=== PATIENT | male | born 1990 | race Caucasian/White ===

== ENCOUNTER 2017-10-16 13:06 | Emergency (ER) | payer BC, OTHER ==
[~2017-10-16] VITALS: Ht 180.3 cm; Wt 95.5 kg
[~2017-10-16 13:06] MED LIST: NAPR500T2 PO
[2017-10-16 13:08] VITALS: BP 140/87; PULSE 83; RESP 14; TEMP 97.9; O2SAT 100
[2017-10-16] MEDS ORDERED: SODIUM CHLOR 0.9% 1000 ML INJ 1,000 ML IV SCH (16:00)
[2017-10-16] MEDS ORDERED: ONDANSETRON HCL 4 MG/2 ML VIAL IVP ONE (16:00)
[2017-10-16] MEDS ORDERED: SODIUM CHLORIDE 0.9% FLUSH 10 ML FLUSH IV FLUSH PRN (16:00)
--- NOTE | 2017-10-16 16:02 | PD ---
HPI Chief Complaint: GI Complaint Time Seen by Provider: 15:53 Travel History International Travel<30 days: No Contact w/Intl Traveler<30days: No Traveled to known affect area: No History of Present Illness HPI The patient is a 27-year-old male who presents to the emergency department for 3-4 days of intermittent abdominal cramping, dehydration, and diarrhea. The patient states his symptoms started on Thursday with abdominal pain that was followed by syncopal episode. The patient states that the paramedics came to his place of work and noticed his blood pressure had a systolic in the 160s and his blood sugar was in the 50s. The patient was given oral glucose at that time, his blood sugar improved, and his blood pressure normalized. He declined transport to the hospital at that time. He has been drinking Pedialyte at home and drinking fluids, eating small meals, however, he still feels dehydrated. He also notes he continues to have diarrhea which she describes as loose, watery, brown, without any visible blood. He denies any recent international travel, travel to foreign countries, drinking well water, or camping out [place]. He denies any sick family members at home with similar symptoms. He does complain of some generalized body aches but denies any sore throat, cough, or chest pain. He denies any current nausea or vomiting. Symptoms are moderate. PFSH Past Medical History Narrative Medical Left wrist fracture Past Surgical History Narrative Surgical Circumcision, right clavicle surgery Social History Tobacco Use: No Allergies-Medications (Allergen,Severity, Reaction): Coded Allergies: cefaclor (Unverified Allergy, Mild, RASH, 10/16/17) Reported Meds & Prescriptions Reported Meds & Active Scripts Active No Active Prescriptions or Reported Medications Review of Systems Except as stated in HPI: all other systems reviewed are Neg General / Constitutional: Positive: Fever Cardiovascular: No: Chest Pain or Discomfort Respiratory: No: Shortness of Breath Gastrointestinal: Positive: Diarrhea, Abdominal Pain, No: Nausea, Vomiting Genitourinary: No: Dysuria Musculoskeletal: Positive: Myalgias, Weakness Physical Exam Narrative GENERAL: Awake, alert, pleasant 27-year-old male who appears his stated age and is in no acute respiratory distress. SKIN: Focused skin assessment warm/dry. HEAD: Atraumatic. Normocephalic. EYES: No scleral icterus. No injection or drainage. ENT: No nasal bleeding or discharge. Slightly dry mucous membranes. NECK: Trachea midline. No JVD. CARDIOVASCULAR: Regular rate and rhythm. No murmur appreciated. RESPIRATORY: No accessory muscle use. Clear to auscultation. Breath sounds equal bilaterally. GASTROINTESTINAL: Abdomen soft, tender to palpation left lower quadrant. No guarding or rigidity. MUSCULOSKELETAL: No obvious deformities. No clubbing. No cyanosis. No edema. NEUROLOGICAL: Awake and alert. No obvious cranial nerve deficits. Motor grossly within normal limits. Normal speech. PSYCHIATRIC: Appropriate mood and affect; insight and judgment normal. Data Data Last Documented VS Vital Signs Date Time Temp Pulse Resp B/P (MAP) Pulse Ox O2 Delivery O2 Flow Rate FiO2 10/16/17 17:15 75 18 113/60 (77) 100 Room Air 10/16/17 13:08 97.9 Orders Orders Complete Blood Count With Diff (10/16/17 16:00) Comprehensive Metabolic Panel (10/16/17 16:00) Lipase (10/16/17 16:00) Lactic Acid (10/16/17 16:00) Ct Abd/Pel W/O Iv Contrast (10/16/17 16:00) Iv Access Insert/Monitor (10/16/17 16:00) Ecg Monitoring (10/16/17 16:00) Oximetry (10/16/17 16:00) Ondansetron Inj (Zofran Inj) (10/16/17 16:00) Sodium Chlor 0.9% 1000 Ml Inj (Ns 1000 M (10/16/17 16:00) Sodium Chloride 0.9% Flush (Ns Flush) (10/16/17 16:00) Influenzae A/B Antigen (10/16/17 16:02) Labs Laboratory Tests Test 10/16/17 16:20 White Blood Count 8.9 TH/MM3 Red Blood Count 5.33 MIL/MM3 Hemoglobin 15.3 GM/DL Hematocrit 45.1 % Mean Corpuscular Volume 84.7 FL Mean Corpuscular Hemoglobin 28.7 PG Mean Corpuscular Hemoglobin Concent 33.9 % Red Cell Distribution Width 12.1 % Platelet Count 219 TH/MM3 Mean Platelet Volume 7.0 FL Neutrophils (%) (Auto) 78.5 % Lymphocytes (%) (Auto) 15.0 % Monocytes (%) (Auto) 5.0 % Eosinophils (%) (Auto) 0.5 % Basophils (%) (Auto) 1.0 % Neutrophils # (Auto) 7.1 TH/MM3 Lymphocytes # (Auto) 1.3 TH/MM3 Monocytes # (Auto) 0.4 TH/MM3 Eosinophils # (Auto) 0.0 TH/MM3 Basophils # (Auto) 0.1 TH/MM3 CBC Comment DIFF FINAL Differential Comment Blood Urea Nitrogen 13 MG/DL Creatinine 1.20 MG/DL Random Glucose 95 MG/DL Total Protein 7.5 GM/DL Albumin 3.9 GM/DL Calcium Level 9.0 MG/DL Alkaline Phosphatase 73 U/L Aspartate Amino Transf (AST/SGOT) 20 U/L Alanine Aminotransferase (ALT/SGPT) 38 U/L Total Bilirubin 2.0 MG/DL Sodium Level 137 MEQ/L Potassium Level 4.0 MEQ/L Chloride Level 103 MEQ/L Carbon Dioxide Level 25.3 MEQ/L Anion Gap 9 MEQ/L Estimat Glomerular Filtration Rate 72 ML/MIN Lactic Acid Level 0.7 mmol/L Lipase 247 U/L [facility] Medical Decision Making Medical Screen Exam Complete: Yes Emergency Medical Condition: Yes Medical Record Reviewed: Yes Interpretation(s) CT of the abdomen and pelvis reveals a negative exam. No evidence for an acute inflammatory process. No free fluid. Mild degenerative changes at both SI joints. Last Impressions Abdomen/Pelvis CT 10/16/17 1600 Signed Impressions: Service Date/Time: Monday, October 16, 2017 16:24 - CONCLUSION: 1. Negative, I do not see evidence for an inflammatory process. 2. No free fluid 3. Mild degenerative changes both SI joints. Roberto Gardner MD FACR Laboratory Tests Test 10/16/17 16:20 White Blood Count 8.9 TH/MM3 Red Blood Count 5.33 MIL/MM3 Hemoglobin 15.3 GM/DL Hematocrit 45.1 % Mean Corpuscular Volume 84.7 FL Mean Corpuscular Hemoglobin 28.7 PG Mean Corpuscular Hemoglobin Concent 33.9 % Red Cell Distribution Width 12.1 % Platelet Count 219 TH/MM3 Mean Platelet Volume 7.0 FL Neutrophils (%) (Auto) 78.5 % Lymphocytes (%) (Auto) 15.0 % Monocytes (%) (Auto) 5.0 % Eosinophils (%) (Auto) 0.5 % Basophils (%) (Auto) 1.0 % Neutrophils # (Auto) 7.1 TH/MM3 Lymphocytes # (Auto) 1.3 TH/MM3 Monocytes # (Auto) 0.4 TH/MM3 Eosinophils # (Auto) 0.0 TH/MM3 Basophils # (Auto) 0.1 TH/MM3 CBC Comment DIFF FINAL Differential Comment Blood Urea Nitrogen 13 MG/DL Creatinine 1.20 MG/DL Random Glucose 95 MG/DL Total Protein 7.5 GM/DL Albumin 3.9 GM/DL Calcium Level 9.0 MG/DL Alkaline Phosphatase 73 U/L Aspartate Amino Transf (AST/SGOT) 20 U/L Alanine Aminotransferase (ALT/SGPT) 38 U/L Total Bilirubin 2.0 MG/DL Sodium Level 137 MEQ/L Potassium Level 4.0 MEQ/L Chloride Level 103 MEQ/L Carbon Dioxide Level 25.3 MEQ/L Anion Gap 9 MEQ/L Estimat Glomerular Filtration Rate 72 ML/MIN Lactic Acid Level 0.7 mmol/L Lipase 247 U/L Differential Diagnosis Differential diagnosis includes colitis, enteritis, gastroenteritis, viral syndrome, IBS, IBD, dehydration, electrolyte abnormality, food poisoning, diverticulitis. Narrative Course IV was established, labs were drawn and sent, and the patient was placed on cardiac telemetry monitoring and continuous pulse oximetry monitoring. The patient was administered IV fluids. Influenza screen was sent to lab. Noncontrast CT of the abdomen and pelvis was obtained to evaluate for possible colitis. Patient's white count is unremarkable. Lactic acid is normal. LFTs and lipase are within normal limits. Influenza screen was negative. CT the abdomen and pelvis is negative for colitis. The patient was reevaluated at 5: 15 PM, symptoms have significantly improved. The patient is advised to use over -the-counter Imodium as needed. Bentyl and Zofran as needed. Work excuse for today and tomorrow. Follow-up with a primary physician. Diagnosis Primary Impression: Diarrhea Qualified Codes: R19.7 - Diarrhea, unspecified Patient Instructions: General Instructions Additional Instructions: Please provide the patient a copy of his CT results and lab results at discharge. Medications as directed. [id number] Imodium as needed. Work excuse for today and tomorrow. Clear liquid diet and advance as tolerated. Avoid milk products for the next week. Med/Other Pt SpecificInfo: Prescription(s) given Scripts Dicyclomine (Bentyl) 10 Mg Cap 10 MG PO QID Y for ABDOMINAL CRAMPING, #12 CAP 0 Refills Prov: Danish Driver MD 10/16/17 Ondansetron Odt (Zofran Odt) 4 Mg Tab 4 MG SL Q6HR Y for Nausea/Vomiting, #7 TAB 0 Refills Prov: Danish Driver MD 10/16/17 Disposition: 01 DISCHARGE HOME Condition: Stable Danish Driver MD Oct 16, 2017 16:02
[2017-10-16 16:10] VITALS: BP 125/82; PULSE 85; RESP 18; O2SAT 100
[2017-10-16 16:28] LABS: AUTOMATED NEUTROPHIL # 7.1 TH/MM3 (1.8-7.7); BASOPHIL # 0.1 TH/MM3 (0-0.2); EOSINOPHIL % 0.5 % (0.0-4.0); HEMATOCRIT 45.1 % (39.0-51.0); HEMOGLOBIN 15.3 GM/DL (13.0-17.0); LYMPHOCYTE # 1.3 TH/MM3 (1.0-4.8); MEAN CELL VOLUME 84.7 FL (80.0-100.0); MEAN CORPUSCULAR HEMOGLOBIN 28.7 PG (27.0-34.0); MEAN CORPUSCULAR HGB CONC 33.9 % (32.0-36.0); MONOCYTE # 0.4 TH/MM3 (0-0.9); NEUT % 78.5 % (16.0-70.0); PLATELET COUNT 219 TH/MM3 (150-450); RED BLOOD COUNT 5.33 MIL/MM3 (4.50-5.90); RED CELL DISTRIBUTION WIDTH 12.1 % (11.6-17.2); WHITE BLOOD COUNT 8.9 TH/MM3 (4.0-11.0)
[2017-10-16 16:38] LABS: CHLORIDE 103 MEQ/L (98-107); SODIUM (NA) 137 MEQ/L (136-145)
--- NOTE | 2017-10-16 16:38 | RADRPT ---
EXAM DATE/TIME: 10/16/2017 16:24 [facility] COMPARISON: No previous studies available for comparison. INDICATIONS : Abdominal cramping and diarrhea. General weakness. Evaluate for colitis. ORAL CONTRAST: No oral contrast ingested. RADIATION DOSE: 19.20 CTDIvol (mGy) MEDICAL HISTORY : None SURGICAL HISTORY : None. ENCOUNTER: Initial ACUITY: 4 - 6 days PAIN SCALE: 2/10 LOCATION: Abdomen. TECHNIQUE: Volumetric scanning of the abdomen and pelvis was performed. Using automated exposure control and ad justment of the mA and/or kV according to patient size, radiation dose was kept as low as reasonably achievable to obtain optimal diagnostic quality images. DICOM format image data is available electro nically for review and comparison. FINDINGS: LOWER LUNGS: The visualized lower lungs are clear. LIVER: Homogeneous density without lesion. There is no dilation of the biliary tree. No calcified gallston es. SPLEEN: Normal size without lesion. PANCREAS: Within normal limits. KIDNEYS: Normal in size and shape. There is no mass, stone, or hydronephrosis. ADRENAL GLANDS: Within normal limits. VASCULAR: There is no aortic aneurysm. BOWEL/MESENTERY: The stomach, small bowel, and colon demonstrate no acute abnormality. There is no free intraperitone al air or fluid. ABDOMINAL WALL: Within normal limits. RETROPERITONEUM: There is no lymphadenopathy. BLADDER: No wall thickening or mass. REPRODUCTIVE: Within normal limits. INGUINAL: There is no lymphadenopathy or hernia. MUSCULOSKELETAL: Within normal limits for patient age. CONCLUSION: 1. Negative, I do not see evidence for an inflammatory process. 2. No free fluid 3. Mild degenerative changes both SI joints. Roberto Gardner MD FACR on October 16, 2017 at 16:34 Board Certified Radiologist. This report was verified electronically.
[2017-10-16 16:42] LABS: ALBUMIN 3.9 GM/DL (3.4-5.0); BICARBONATE 25.3 MEQ/L (21.0-32.0); BLOOD UREA NITROGEN 13 MG/DL (7-18); GLUCOSE,RANDOM 95 MG/DL (74-106)
[2017-10-16 16:45] LABS: ALT (GPT) 38 U/L (12-78); AST (GOT) 20 U/L (15-37); GLOMERULAR FILTRATION RATE 72 ML/MIN (>89)
[2017-10-16 16:46] LABS: TOTAL PROTEIN 7.5 GM/DL (6.4-8.2)
[2017-10-16 16:48] LABS: ALKALINE PHOSPHATASE 73 U/L (45-117)
[2017-10-16 17:15] VITALS: BP 113/60; PULSE 75; RESP 18; O2SAT 100
[2017-10-16] MEDS ORDERED: DICY10 PO (17:30)
[2017-10-16] MEDS ORDERED: ZOFR4TAB3 SL (17:30)
[2017-10-16 17:47] VITALS: BP 127/77
== END 2017-10-16 18:10 | disposition home or self-care (01) ==
LOC: PHED 13:06
DX: R19.7 Diarrhea, unspecified (principal); R10.9 Unspecified abdominal pain; M79.1 Myalgia
CPT/HCPCS: 74176; 80053; 83605; 83690; 85025; 87804; 96374; 99285; J2405; J7030